=== PATIENT | male | born 1995 | race African-American/Black ===

== ENCOUNTER 2021-08-03 20:04 | Emergency (ER) | payer SELFPAY ==
--- NOTE | 2021-08-03 20:59 | RAD REPORT ---
EXAM DESCRIPTION: RAD - Ankle Right 3 View - 08/03/2021 8:51 pm CLINICAL HISTORY: Basketball injury, twisted ankle COMPARISON: None. FINDINGS: No fracture, dislocation or periosteal reaction. No joint effusion seen. No joint space na rrowing. Lateral and anterior soft tissue swelling is present. IMPRESSION: Soft tissue swelling with no right ankle fracture.
[2021-08-03] MEDS ORDERED: MORPHINE 4 MG/ML SYR ONE (21:09)
[2021-08-03] MEDS ORDERED: IBUPROFEN 400 MG TAB ONE (21:09)
--- NOTE | 2021-08-03 21:19 | ER ---
Nurse's Notes [facility] Name: Jim Marquis Jr Age: 25 yrs Sex: Male : 1995 Arrival Date: 08/03/2021 Time: 20:08 Bed 19 Private MD: Diagnosis: Sprain of unspecified ligament of right ankle, initial encounter Presentation: 08/03 20:29 Chief complaint: EMS states: EMS REPORT PATIENT WAS PLAYING BASKETBALL, DID A TWIST, ag7 FELL AND HEARD X 2 POPS TO THE RIGHT ANKLE. Coronavirus screen: Client denies travel out of the [place] in the last 14 days. At this time, the client does not indicate any symptoms associated with coronavirus-19. Ebola Screen: Patient negative for fever greater than or equal to 101.5 degrees Fahrenheit, and additional compatible Ebola Virus Disease symptoms Patient denies exposure to infectious person. Patient denies travel to an Ebola-affected area in the 21 days before illness onset. Initial Sepsis Screen: Does the patient meet any 2 criteria? No. Patient's initial sepsis screen is negative. Does the patient have a suspected source of infection? No. Patient's initial sepsis screen is negative. Risk Assessment: Do you want to hurt yourself or someone else? Patient reports no desire to harm self or others. Onset of symptoms was August 03, 2021. 20:29 Method Of Arrival: EMS: [facility] 20:29 Acuity: BÁRBARA 3 ag7 21:14 Care prior to arrival: Medication(s) given: FENTANYL 100 MCG IVP, NS 1000 ML IV RIGHT ag7 AC, ZOFRAN 4 MG IV. Historical: - Allergies: 20:33 No Known Allergies; ag7 - Home Meds: 20:33 None [Active]; ag7 - PMHx: 20:33 None; ag7 - PSHx: 20:33 None; ag7 - Immunization history:: Adult Immunizations up to date, Client reports having NOT received the Covid vaccine. Flu vaccine is not up to date. Patient has never been vaccinated. - Social history:: Smoking status: Patient denies any tobacco usage or history of. Screenin:36 Abuse screen: Denies threats or abuse. Nutritional screening: No deficits noted. ag7 Tuberculosis screening: No symptoms or risk factors identified. Fall Risk Fall in past 12 months (25 points). No secondary diagnosis (0 pts). IV access (20 points). Ambulatory Aid- None/Bed Rest/Nurse Assist (0 pts). Gait- Impaired (20 pts.). Mental Status- Oriented to own ability (0 pts). Total Hogan Fall Scale indicates High Risk Score (45 or more points). Fall prevention measures have been instituted. Side Rails Up X 2 Placed Close to Nursing Station Frequent Obs/Assessments Occuring Family Present and informed to notify staff if the need to leave the bedside As available patient and family educated on Fall Prevention Program and Strategies. Assessment: 20:33 General: Appears in no apparent distress. Behavior is calm, cooperative, appropriate ag7 for age, Smells of. Pain: Complains of pain in lateral side of right foot, lateral side of right heel, right lateral malleolus and dorsum of right foot Pain does not radiate. Pain currently is 4 out of 10 on a pain scale. Quality of pain is described as aching, Pain began suddenly, Is continuous. Neuro: Level of Consciousness is awake, alert, obeys commands, Oriented to Appropriate for age. Cardiovascular: Patient's skin is warm and dry. Respiratory: Airway is patent Trachea midline Respiratory effort is even, unlabored, Respiratory pattern is regular, symmetrical. Musculoskeletal: Range of motion: limited in right ankle Swelling present in right foot Reports pain in right foot. Vital Signs: 20:29 BP 122 / 67; Pulse 97; Resp 18; Temp 98.5(O); Pulse Ox 99% on R/A; Weight 92.99 kg; ag7 Height 5 ft. 9 in. (175.26 cm); Pain 4/10; 21:30 BP 100 / 70; Pulse 92; Resp 16; Pulse Ox 95% ; Pain 5/10; ag7 20:29 Body Mass Index 30.27 (92.99 kg, 175.26 cm) ag7 ED Course: 20:08 Patient arrived in ED. mw2 20:29 Xena Sigala, BETTIE is Primary Nurse. ag7 20:33 Triage completed. ag7 20:36 Blayne Ferguson PA is PHCP. cp 20:36 Charlie Pichardo MD is Attending Physician. cp 20:37 No provider procedures requiring assistance completed. Maintain EMS IV. Dressing ag7 intact. Good blood return noted. Site clean \T\ dry. Gauge \T\ site: 18 gauge. 20:37 Patient has correct armband on for positive identification. Bed in low position. Call ag7 light in reach. Adult w/ patient. 20:53 XRAY Ankle RIGHT 3 view In Process Unspecified. EDMS 21:13 Maintain EMS IV. ag7 21:18 Ministerio Ndiaye MD is Referral Physician. cp 21:37 Referral Physician role handed off by Ministerio Ndiaye MD cp 21:37 Ministerio Ndiaye MD is Referral Physician. cp 21:49 Patient ice intermittent. ag7 21:50 IV discontinued, intact, bleeding controlled, No redness/swelling at site. Pressure ag7 dressing applied. Administered Medications: 21:12 Drug: morphine 4 mg Route: IVP; Site: right antecubital; ag7 21:51 Follow up: Response: No adverse reaction; Pain is decreased ag7 21:12 Drug: Ibuprofen 800 mg Route: PO; ag7 21:51 Follow up: Response: No adverse reaction ag7 Outcome: 21:18 Discharge ordered by MD. cp 21:49 Discharged to home ambulatory, with crutches. ag7 21:49 Condition: stable 21:49 Discharge instructions given to patient, Instructed on discharge instructions, follow up and referral plans. medication usage, crutch walking, air boot Demonstrated understanding of instructions, follow-up care, medications, crutch walking, Prescriptions given X 1. 21:52 Patient left the ED. ag7 Signatures: Dispatcher [employer] EDMS Blayne Ferguson PA PA cp [place], MyKena mw2 Xena Sigala RN RN ag7 Corrections: (The following items were deleted from the chart) 21:13 20:37 Maintain EMS IV. Dressing intact. Good blood return noted. Site clean \T\ dry. ag7 Gauge \T\ site: 20 gauge. ag7
--- NOTE | 2021-08-03 21:19 | EDPHYS ---
Physician Documentation [facility] Name: Jim Marquis Jr Age: 25 yrs Sex: Male : 1995 Arrival Date: 08/03/2021 Time: 20:08 Bed 19 Private MD: ED Physician Charlie Pichardo HPI: 08/03 20:40 This 25 yrs old Black Male presents to ER via EMS with complaints of Ankle Injury. cp 20:40 The patient presents with an injury, pain, that is acute, swelling, tenderness. The cp complaints affect the right ankle. 20:40 Onset: The symptoms/episode began/occurred just prior to arrival. cp 20:40 Context: The problem was sustained at a sports field or court, while playing cp basketball, The patient is unable to bear weight. Associated signs and symptoms: The patient has no apparent associated signs or symptoms. Severity of symptoms: in the emergency department the symptoms are unchanged, despite EMS interventions. Historical: - Allergies: 20:33 No Known Allergies; ag7 - Home Meds: 20:33 None [Active]; ag7 - PMHx: 20:33 None; ag7 - PSHx: 20:33 None; ag7 - Immunization history:: Adult Immunizations up to date, Client reports having NOT received the Covid vaccine. Flu vaccine is not up to date. Patient has never been vaccinated. - Social history:: Smoking status: Patient denies any tobacco usage or history of. ROS: 20:45 Constitutional: Negative for body aches, chills, fever. cp 20:45 Respiratory: Negative for cough, shortness of breath, wheezing. 20:45 MS/extremity: Positive for pain, swelling, tenderness, Negative for paresthesias. 20:45 Neuro: Negative for numbness, tingling. 20:45 All other systems are negative. Exam: 20:50 Constitutional: The patient appears in no acute distress, alert, awake, well developed, cp well nourished, uncomfortable. 20:50 Musculoskeletal/extremity: Extremities: grossly normal except: noted in the right cp ankle: tenderness, marked swelling of lateral and medial malleoli, There is no evidence of deformity, ROM: limited passive range of motion due to pain, in the right ankle, Pulses: noted to be 2+ in the right dorsalis pedis artery, the right foot and right ankle Sensation intact. Achilles tendon palpated and intact, no pain to palpation noted proximal right fibula and/or base of right fifth metatarsal. Vital Signs: 20:29 BP 122 / 67; Pulse 97; Resp 18; Temp 98.5(O); Pulse Ox 99% on R/A; Weight 92.99 kg; ag7 Height 5 ft. 9 in. (175.26 cm); Pain 4/10; 21:30 BP 100 / 70; Pulse 92; Resp 16; Pulse Ox 95% ; Pain 5/10; ag7 20:29 Body Mass Index 30.27 (92.99 kg, 175.26 cm) ag7 MDM: 20:38 Patient medically screened. cp 21:17 Data reviewed: vital signs, nurses notes, radiologic studies, plain films. cp 21:17 Differential diagnosis: fracture, sprain, dislocation. Test interpretation: by ED cp physician or midlevel provider: plain radiologic studies. Response to treatment: the patient's symptoms have markedly improved after treatment, and as a result, I will discharge patient. ED course: Patient placed in walking boot for comfort and support, crutches given. Will discharge to home for continued monitoring. 08/03 20:38 Order name: XRAY Ankle RIGHT 3 view; Complete Time: 21:22 cp 08/03 21:22 Interpretation: Report reviewed. cp 08/03 21:03 Order name: Walking boot; Complete Time: 21:51 cp 08/03 21:03 Order name: Crutches; Complete Time: 21:51 cp Administered Medications: 21:12 Drug: morphine 4 mg Route: IVP; Site: right antecubital; ag7 21:51 Follow up: Response: No adverse reaction; Pain is decreased ag7 21:12 Drug: Ibuprofen 800 mg Route: PO; ag7 21:51 Follow up: Response: No adverse reaction [facility] Disposition: 08/04 07:15 Co-signature as Attending Physician, Charlie Pichardo MD. mh7 Disposition Summary: 08/03/21 21:18 Discharge Ordered Location: Home cp Problem: new cp Symptoms: have improved cp Condition: Stable cp Diagnosis - Sprain of unspecified ligament of right ankle, initial encounter cp Followup: cp - With: Ministerio Ndiaye MD - When: 1 week - Reason: Recheck today's complaints Followup: cp - With: Ministerio Ndiaye MD - When: 1 week - Reason: Discharge Instructions: - Discharge Summary Sheet cp - Ankle Sprain cp Forms: - Medication Reconciliation Form cp - Thank You Letter cp - Antibiotic Education cp - Prescription Opioid Use cp - Work release form vc1 Prescriptions: - Naprosyn 500 mg Oral Tablet - take 1 tablet by ORAL route 2 times per day take with food; 20 tablet; Refills: cp 0, Product Selection Permitted Signatures: Dispatcher [employer] EDMS Blayne Ferguson PA PA cp Charlie Pichardo MD MD 7 Xena Sigala RN RN ag7 Corrections: (The following items were deleted from the chart) 08/03 21:17 20:35 This 25 yrs old Black Male presents to ER via EMS with complaints of Ankle cp Injury. cp 21:17 20:35 The patient presents with an injury, pain, that is acute, swelling, tenderness, cpcp 21:17 20:35 The complaints affect the right ankle, cp cp 08/04 17:08/03 20:30 MS/extremity: Positive for pain, swelling, tenderness, Negative for cp paresthesias, cp 08/04 16:08/03 20:30 Constitutional: Negative for body aches, chills, fever, cp cp 08/04 16:08/03 20:30 Respiratory: Negative for cough, shortness of breath, wheezing, cp cp 08/04 16:08/03 20:30 Neuro: Negative for numbness, tingling, cp cp 08/04 16:08/03 20:30 All other systems are negative, cp cp
[2021-08-04 06:09] VITALS: TEMP 98.5
[2021-08-04 06:10] VITALS: BP 100/70; O2SAT 95
== END 2021-08-03 21:52 | disposition home or self-care (01) ==
LOC: ER 20:04
DX: S93.401A Sprain of unspecified ligament of right ankle, initial encounter (principal); Y93.67 Activity, basketball; Y92.310 Basketball court as the place of occurrence of the external cause
CPT/HCPCS: 96374; 99284

== ENCOUNTER 2024-04-15 15:27 | Emergency (ER) | payer OTHER, SELFPAY ==
--- OUTSIDE RECORDS SUMMARY | 2024-04-15 15:30 | XMS REPORT | Continuity of Care Document ---
Author Name Unknown Address [address] [place] [address] [facility] thconnect Address [address] [place] [address] Care Team Providers Care Lab Tech Name Role Phone Pcp, Patient Does Not Have A Primary Care Physic david RUFUS SNOW Attending Clinician Unavailable JEFFRY BOUDREAUX Attending Clinician UnavailJeffry Paiz Attending Clinician LEESA BETTS Attending Clinician Unavailable Payers Payer Name Policy Type Policy Number Effective Date Expirati on Date Source [employer] A[employer] COMM [id number] 2023 00:00:00 [employer] [id number] 2022 00:00:00 Problems Condition Name Condition Details Condition Category Status Onset Date Resolution Date Last Treatment Date Treating Clinician Comments Source Chlamydia trachomati s infection of lower genitourin trino sites Chlamydia trachomati s infection of lower genitourin trino sites Disease Active 07-29 00:00: 00 [facility] Allergies, Adverse Reactions, Alerts Allergy Name Allergy Type Status Severity Reaction(s) Onset Date Inactive Date Treating Clinician Comments Source NO KNOWN ALLERGIE S Drug Class Active [facility] Social History Social Habit Start Date Stop Date Quantity Comments [facility] 2023-06-03 00:00:00 2023-06-03 00:00:00 Current non-drinker of alcohol (finding) [facility] History of Social function 2023-06-03 00:00:00 2023-06-03 00:00:00 [facility] Sex Ass[birth year] At 1995 00:00:00 1995 00:00:00 [facility] Smoking Status Start Date Stop Date Source Never smoked tobacco [facility] Vital Signs Vital Name Observation Time Observation Value Comments S ource Systolic blood pressure 2023-06-03 05:42:00 145 mm[Hg] [facility] Diastolic blood pressure 2023-06-03 05:42:00 79 mm[Hg] [facility] Heart rate 2023-06-03 05:42:00 100 /min [facility] Body temperature 2023-06-03 05:42:00 37 [place] [facility] Respiratory rate 2023-06-03 05:42:00 18 /min [facility] Body height 2023-06-03 05:42:00 172.7 cm [facility] Body weight 2023-06-03 05:42:00 94.348 kg [facility] BMI 2023-06-03 05:42:00 31.63 kg/m2 [facility] Oxygen saturation in Arterial blood by Pulse oximetry 2023-06-03 05:42:00 100 /min [facility] Procedures Procedure Date / Time Performed Performing Clinicia n Source NOTICE OF PRIVACY PRACTICES 2023-06-03 05:37:47 Doctor Unassigned, [place] [facility] CONSENT/REFUSAL FOR DIAGNOSIS AND TREATMENT 2023-06-03 05:37:02 Doctor Unassigned, [place] [facility] Encounters Start Date/Time End Date/Time Encounter Type Admission Type Attending Clinicians Care Facility Care Department Encounter ID Source 2024-04-13 12:42:59 2024-04-13 13:34:01 Out[facility] Elective [id number] 2023-06-02 23:47:00 2023-06-03 01:43:00 Emergency X JEFFRY BOUDREAUX [facility] ERT [id number] [facility] 2023-06-02 23:47:00 2023-06-03 01:43:00 Emergency Jeffry Boudreaux [facility] [id number] [facility] 2023-04-19 09:30:00 2023-04-19 09:30:00 Outpatient LEESA BETTS [id number] Lady Diaz
--- NOTE | 2024-04-15 17:29 | ER ---
Nurse's Notes [facility] Name: Jim Marquis Jr Age: 28 yrs Sex: Male : 1995 Arrival Date: 04/15/2024 Time: 15:27 Bed Waiting Private MD: Diagnosis: Assessment: 04/15 17:09 Reassessment: called from lobby, no answer. jl7 ED Course: 15:30 Patient arrived in ED. ra3 15:41 Liane Cabrera MD is Attending Physician. gb1 17:08 Patient's name was called from ER lobby. No response. Unable to locate patient. Will jl7 disposition as left without being seen by a provider. 17:20 Patient's name was called from ER lobby. No response. Unable to locate patient. Will jl7 disposition as left without being seen by a provider. 17:25 Patient's name was called from ER lobby. No response. Unable to locate patient. Will jl7 disposition as left without being seen by a provider. Administered Medications: No medications were administered Outcome: 17:29 Patient left the ED. jl7 Signatures: Marlon Loya RN RN jl7 Liane Cabrera MD MD gb1 Lynnette Michelle ra3
== END 2024-04-15 17:29 | disposition left against medical advice (07) ==
LOC: ER 15:27
DX: Z02.9 Encounter for administrative examinations, unspecified (principal)